=== PATIENT | female | born 1945 | race Caucasian/White ===

== ENCOUNTER 2017-07-25 11:05 | Outpatient (CLI) | payer MEDICARE, BC ==
[2017-07-25 11:12] VITALS: BP 121/75
== END 2017-07-25 11:45 | disposition home or self-care (01) ==
LOC: ORTHO 11:05
PROVIDERS: ATTEND Nurse Practitioner Family
DX: S42.402D Unspecified fracture of lower end of left humerus, subsequent encounter for fracture with routine healing (principal); S53.105D Unspecified dislocation of left ulnohumeral joint, subsequent encounter; M77.8 Other enthesopathies, not elsewhere classified; E78.00 Pure hypercholesterolemia, unspecified; E07.9 Disorder of thyroid, unspecified; Z60.2 Problems related to living alone; X58.XXXD Exposure to other specified factors, subsequent encounter
CPT/HCPCS: 73080

== ENCOUNTER 2023-04-13 12:30 | Day surgery (SDC) | payer MEDICARE, BC ==
[2023-04-10 15:27] LABS: BASOPHILS % (AUTO) 0.7 % (0-1); EOSINOPHILS # (AUTO) 0.1 X10'3 (0-0.9); EOSINOPHILS % (AUTO) 1.5 % (0-6); LYMPHOCYTES # (AUTO) 1.1 X10'3 (1.1-4.8); MEAN CORPUSCULAR HEMOGLOBIN 30.1 PG (27.0-31.0); MEAN CORPUSCULAR HGB CONC 32.8 g/dL (33.0-36.5); MEAN CORPUSCULAR VOLUME 91.9 FL (78-98); MEAN PLATELET VOLUME 8.7 FL (7.4-10.4); MONOCYTES # (AUTO) 0.7 X10'3 (0-0.9); MONOCYTES % (AUTO) 10.6 % (2-12); NEUTROPHILS # (AUTO) 5.1 X10'3 (1.8-7.7); NEUTROPHILS % (AUTO) 72.2 % (42-75); PRE OP HEMATOCRIT 46.1 % (35.0-45.0); PRE OP HEMOGLOBIN 15.1 g/dL (12.0-16.0); PRE OP PLATELET COUNT 213 X10'3 (140-440); PRE OP WHITE BLOOD COUNT 7.1 10'3 (4.8-10.8); RED BLOOD COUNT 5.02 X10'6 (4.20-5.60); RED CELL DISTRIBUTION WIDTH 15.1 % (11.5-14.5)
[2023-04-10 15:51] LABS: ALBUMIN 3.6 G/DL (3.4-5.0); ALKALINE PHOSPHATASE 116 IU/L (46-116); BLOOD UREA NITROGEN 15 MG/DL (7-18); BUN/CREATININE RATIO 16.3 (10.0-20.0); CALCIUM 9.8 MG/DL (8.5-10.1); CHLORIDE 106 MMOL/L (99-107); CREATININE 0.92 MG/DL (0.40-0.90); PRE OP ALT 29 U/L (30-65); PRE OP ANION GAP 6 (8-16); PRE OP AST 16 U/L (10-37); PRE OP BILIRUB, TOTAL 1.1 MG/DL (0.0-1.0); PRE OP GLUCOSE 127 MG/DL (70-104); PRE OP POTASSIUM 3.5 MMOL/L (3.4-5.1); PRE OP SODIUM 140 MMOL/L (135-145); TOTAL CARBON DIOXIDE 27.9 MMOL/L (24-32); TOTAL PROTEIN 7.3 G/DL (6.4-8.2); eGFR 59 ML/MIN
[~2023-04-13] VITALS: Ht 167.6 cm; Wt 99.3 kg
[2023-04-13] VITALS (10 sets, daily range): BP systolic 131–151; BP diastolic 65–79; PULSE 64–81; RESP 10–16; TEMP 98.3; O2SAT 92–99
[~2023-04-13 12:30] MED LIST: ASPI-612 PO; ATOR40TA72 PO; CHOL100040 PO; LEVO150T8 PO; cefazolin 2gm/D5W 100mL 100 ML IV ONE; famotidine 20mg tablet PO ONE; ringers solution, lacted 1,000 ML IV SCH
[2023-04-13] MEDS ORDERED: ringers solution, lacted 1,000 ML IV SCH (13:45)
[2023-04-13] MEDS ORDERED: HYDROmorphone/PF 0.2 MG/ML SYRINGE IV PRN ×2 (13:45)
[2023-04-13] MEDS ORDERED: BUPIVAcaine/PF 2.5 mg/ml (0.25%) 30ml vial ONE (13:45)
[2023-04-13] MEDS ORDERED: ondansetron/PF 4mg/2ml inj IV PRN (13:45)
[2023-04-13] MEDS ORDERED: morphine 2 MG/ML inj. syringe IV PRN (13:45)
[2023-04-13] MEDS ORDERED: fentaNYL/PF 50MCG/1 ML 2ML syringe ONE ×2 (13:51→14:34)
[2023-04-13] MEDS ORDERED: sevoflurane 250ml liquid IH ONE (14:15)
[2023-04-13] MEDS ORDERED: LIDOcaine 2% (20mg/ml) 5ml vial ONE (14:49)
[2023-04-13] MEDS ORDERED: propofol inj 20 ML IV ONE (14:49)
[2023-04-13] MEDS ORDERED: dexamethasone sod phosphate 4mg/ml inj. ONE (14:49)
[2023-04-13] MEDS ORDERED: ondansetron/PF 4mg/2ml inj ONE (14:49)
[2023-04-13] MEDS ORDERED: BUPIVAcaine/PF 2.5 mg/ml (0.25%) 30ml vial IJ ONE (14:57)
--- NOTE | 2023-04-13 15:09 | NUR ---
Received from OR via [facility] IN STABLE CONDITION , accompanied by Anesthesiologist and ENVIRONMENTAL CONFLICT MANAGER report given by ENVIRONMENTAL CONFLICT MANAGER AND Anesthesiolgist. Addendum: 04/13/23 at 1538 by Deirdre Johnston RN Amended: Links added.
--- NOTE | 2023-04-13 16:59 | NUR ---
PATIENT DISCHARGED FROM PACU IN STABLE CONDITION AFTER WRITTEN AND VERBAL DISCHARGE INSTRUCTIONS GIVEN. PATIENT GAVE VERBAL UNDERSTANDING OF INSTRUCTIONS GIVEN. PATIENT LEFT FACILITY VIA WHEELCHAIR WITH TECH. Addendum: 04/13/23 at 1702 by Deirdre Johnston RN Amended: Links added.
== END 2023-04-13 16:59 | disposition home or self-care (01) ==
LOC: PAS 12:30
PROVIDERS: ATTEND Surgery
DX: C50.511 Malignant neoplasm of lower-outer quadrant of right female breast (principal); E03.9 Hypothyroidism, unspecified; I25.10 Atherosclerotic heart disease of native coronary artery without angina pectoris; G47.33 Obstructive sleep apnea (adult) (pediatric); Z95.1 Presence of aortocoronary bypass graft; Z79.899 Other long term (current) drug therapy; Z79.82 Long term (current) use of aspirin; Z96.652 Presence of left artificial knee joint; Z98.890 Other specified postprocedural states; Z72.89 Other problems related to lifestyle; Z85.3 Personal history of malignant neoplasm of breast; Z88.8 Allergy status to other drugs, medicaments and biological substances; Z88.5 Allergy status to narcotic agent; Z87.891 Personal history of nicotine dependence
CPT/HCPCS: 19301; 36415; 80053; 82948; 85025; 88307; 88360; J0690; J1100; J2405; J2704; J3010; J3490; J7030; J7120; Z7506; Z7512; A4215; A4618; A6449; A7000

== ENCOUNTER 2023-05-11 05:36 | Observation (INO) | payer MEDICARE, BC ==
[2023-05-04 14:52] LABS: BASOPHILS % (AUTO) 0.6 % (0-1); EOSINOPHILS # (AUTO) 0.2 X10'3 (0-0.9); EOSINOPHILS % (AUTO) 2.3 % (0-6); LYMPHOCYTES # (AUTO) 1.1 X10'3 (1.1-4.8); LYMPHOCYTES % (AUTO) 15.4 % (21-51); MEAN CORPUSCULAR HEMOGLOBIN 30.2 PG (27.0-31.0); MEAN CORPUSCULAR VOLUME 91.7 FL (78-98); MEAN PLATELET VOLUME 8.2 FL (7.4-10.4); MONOCYTES # (AUTO) 0.6 X10'3 (0-0.9); MONOCYTES % (AUTO) 8.7 % (2-12); PRE OP HEMATOCRIT 45.9 % (35.0-45.0); PRE OP HEMOGLOBIN 15.1 g/dL (12.0-16.0); PRE OP PLATELET COUNT 199 X10'3 (140-440); PRE OP WHITE BLOOD COUNT 6.9 10'3 (4.8-10.8); RED BLOOD COUNT 5.01 X10'6 (4.20-5.60); RED CELL DISTRIBUTION WIDTH 15.1 % (11.5-14.5)
[2023-05-04 15:07] LABS: PRE OP PROTIME 10.4 SECONDS (9.0-12.0)
[2023-05-04 15:24] LABS: ALBUMIN 3.6 G/DL (3.4-5.0); ALKALINE PHOSPHATASE 116 IU/L (46-116); BLOOD UREA NITROGEN 16 MG/DL (7-18); BUN/CREATININE RATIO 17.2 (10.0-20.0); CALCIUM 9.3 MG/DL (8.5-10.1); CHLORIDE 105 MMOL/L (99-107); CREATININE 0.93 MG/DL (0.40-0.90); PRE OP ALT 29 U/L (30-65); PRE OP ANION GAP 9 (8-16); PRE OP AST 20 U/L (10-37); PRE OP BILIRUB, TOTAL 1.3 MG/DL (0.0-1.0); PRE OP GLUCOSE 118 MG/DL (70-104); PRE OP SODIUM 139 MMOL/L (135-145); THYROID STIMULATING HORMONE 1.92 ulU/ml (0.34-4.50); TOTAL CARBON DIOXIDE 25.3 MMOL/L (24-32); TOTAL PROTEIN 7.2 G/DL (6.4-8.2); eGFR 58 ML/MIN
[2023-05-11] VITALS (37 sets, daily range): BP systolic 107–185; BP diastolic 60–94; PULSE 61–95; RESP 9–16; TEMP 97.4–97.9; O2SAT 75–98
[~2023-05-11] VITALS: Ht 167.6 cm; Wt 98.7 kg
[~2023-05-11 05:36] MED LIST changes: +CETI10CA19 PO; +GABA-530 PO
[2023-05-11] MEDS ORDERED: LIDOcaine 1% 30ml preserv. free vial ONE (06:51)
[2023-05-11] MEDS ORDERED: BUPIVAcaine HCl 0.25%/EPInephrine 1:200,000 inj. 10 ML VIAL ONE (06:52)
[2023-05-11] MEDS ORDERED: BUPIVAcaine/PF 2.5mg/ml (0.25%) 10ml vial ONE (06:52)
[2023-05-11] MEDS ORDERED: fentaNYL/PF 50MCG/1 ML 2ML syringe ONE ×3 (07:16→08:38)
[2023-05-11] MEDS ORDERED: ondansetron/PF 4mg/2ml inj ONE (07:17)
[2023-05-11] MEDS ORDERED: propofol inj 20 ML IV ONE (07:17)
[2023-05-11] MEDS ORDERED: LIDOcaine 2% (20mg/ml) 5ml vial ONE (07:17)
[2023-05-11] MEDS ORDERED: dexamethasone sod phosphate 4mg/ml inj. ONE (07:17)
[2023-05-11] MEDS ORDERED: midazolam 1 mg/ML 2ml injection ONE (07:17)
[2023-05-11] MEDS ORDERED: ringers solution, lacted 1,000 ML IV SCH (07:20)
[2023-05-11] MEDS ORDERED: morphine 4 MG/ML inj SYRINge IV PRN (07:20)
[2023-05-11] MEDS ORDERED: hydrALAZINE 20mg/ml inj. IV PRN (07:20)
[2023-05-11] MEDS ORDERED: morphine 2 MG/ML inj. syringe IV PRN (07:20)
[2023-05-11] MEDS ORDERED: labetalol 20mg/4ml (5mg/ml) syringe IV PRN (07:20)
[2023-05-11] MEDS ORDERED: fentaNYL/PF 50MCG/1 ML 2ML syringe IV PRN (07:20)
[2023-05-11] MEDS ORDERED: ondansetron/PF 4mg/2ml inj IV PRN ×2 (07:20→10:05)
[2023-05-11] MEDS ORDERED: PHENYLephrine 10mg/ml 5ml injection IV ONE (07:34)
[2023-05-11] MEDS ORDERED: sevoflurane 250ml liquid IH ONE (07:34)
[2023-05-11] MEDS ORDERED: acetaminophen 1,000mg/100ml IV 100 ML IV ONE (07:49)
--- NOTE | 2023-05-11 10:02 | NUR ---
Received from OR via [facility], accompanied by Anesthesiologist DR BURNETT and report given by Anesthesiolgist. PT PRESENTS WITH 20G LEFT FOREARM,DRESSING ON RIGHT BREAST CDI WITH GUILHERME DRAIN, 0 OUTPUT, SPO2 96% MASK 6L, LR RUNNING AT 100MLS/HR, VSS. Addendum: 05/11/23 at 1012 by Rosenda Lai RN, RN Amended: Links added.
[2023-05-11] MEDS ORDERED: naloxone 0.4 mg/ml inj IV PRN (10:05)
[2023-05-11] MEDS ORDERED: PCA WASTE DOCUMENTATION 1 MG ML MC PRN (10:05)
[2023-05-11] MEDS ORDERED: normal saline 1000ml 1,000 ML IV SCH (10:05)
[2023-05-11] MEDS: fentaNYL/PF 50MCG/1 ML 2ML syringe IV PRN ×2 (10:20→10:40)
[2023-05-11] MEDS: potassium CL 20mEq in D5-1/2NS 1,000 ML IV SCH ×3 (10:53→20:14)
[2023-05-11] MEDS: HYDROmorph/NS 0.2 mg/ml PCA 100 ML IV SCH ×7 (10:57→23:00)
--- NOTE | 2023-05-11 12:56 | NUR ---
pt taken to [facility] room 243 BESSY FLORES TO TAKE OVER CARE. Addendum: 05/11/23 at 1319 by Rosenda Lai RN, RN Amended: Links added.
--- NOTE | 2023-05-11 13:00 | NUR ---
ASSUMED CARE OF PATIENT FROM LINDSEY FLORES IN RECOVERY.
[2023-05-11] MEDS ORDERED: cholecalciferol (vitamin D3) 1,000 unit (25mcg) tablet PO SCH (21:00)
[2023-05-11] MEDS ORDERED: atorvastatin 20mg tablet PO SCH (21:00)
[2023-05-11] MEDS ORDERED: gabapentin 300mg capsule PO SCH (21:00)
[2023-05-12] MEDS: HYDROmorph/NS 0.2 mg/ml PCA 100 ML IV SCH ×5 (01:00→09:00)
[2023-05-12 02:00] VITALS: BP 102/64; PULSE 60; RESP 20; TEMP 97.6; O2SAT 96
[2023-05-12] MEDS: potassium CL 20mEq in D5-1/2NS 1,000 ML IV SCH (05:18)
--- NOTE | 2023-05-12 06:09 | NUR ---
Problems reprioritized. Patient report given, questions answered & plan of care reviewed with SARA FLORES.
[2023-05-12 06:14] VITALS: BP 108/54; PULSE 59; RESP 22; TEMP 97; O2SAT 96
--- NOTE | 2023-05-12 06:33 | NUR ---
Patient in room [facility]TH[facility] 4024. I have received report from Idania FLORES and had the opportunity to ask questions and assume patient care.
[2023-05-12 07:24] VITALS: RESP 16
[2023-05-12] MEDS ORDERED: levoTHYROXINE 75mcg tablet PO SCH (08:00)
[2023-05-12] MEDS ORDERED: cetirizine 10mg tablet PO SCH (08:00)
[2023-05-12] MEDS ORDERED: oxyCODONE IR 5mg (immed. release) tablet PO PRN (10:50)
[2023-05-12 11:01] VITALS: BP 118/55; PULSE 61; RESP 16; TEMP 97.7; O2SAT 97
--- NOTE | 2023-05-12 11:26 | NUR ---
last setting on CADD VTBI 83, 2/2- 0.4 given, 3.4 total given. Medication wasted.
--- NOTE | 2023-05-12 12:51 | NUR ---
Patient discharge with family home. WC to asiya by staff. IV removed with canula in tact. Education on discharge completed with verbal acknowledgement of understanding. Patient understands all next doses for home medications. No new medications to be picked up, patient states she has pain medications at home. Discharge paper work includes Dr Roberson post op discharge notes. Patient knows how to drain GUILHERME and is aware to record amounts to report to MD. CPAP machine taken home along with Cell phone. Dressing changed on discharge, extra dressing provided for home use. Patient states she has an appointment to follow up on .
== END 2023-05-12 12:40 | disposition home or self-care (01) ==
LOC: PAS 05:36 → PAS IN 10:17 → ORTHO 4S 15:20
PROVIDERS: ADMIT Surgery; ATTEND Surgery
DX: C50.511 Malignant neoplasm of lower-outer quadrant of right female breast (principal); G89.18 Other acute postprocedural pain; I25.10 Atherosclerotic heart disease of native coronary artery without angina pectoris; E03.9 Hypothyroidism, unspecified; Z79.899 Other long term (current) drug therapy
CPT/HCPCS: 14301; 19303; 36415; 38525; 38900; 64417; 80053; 82948; 84443; 85025; 85610; 85730; 96365; 96366; 96375; 97116; 97161; 97530; G0378; J0131; J0690; J1100; J1170; J2250; J2370; J2405; J2704; J3010; J3480; J3490; J7120; 88307; 88342; A4215; A4615; A4618; A6213; A6258; A6449; A7000